=== PATIENT | male | born 1955 | race Caucasian/White ===

== ENCOUNTER 2017-06-29 13:05 | Emergency (ER) | payer OTHER ==
[~2017-06-29] VITALS: Ht 193 cm; Wt 113.4 kg
--- NOTE | ~2017-06-29 | EKG ---
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1955 Requested By: Carroll Salazar Order Number: [id number] MD: Jean Meadows Measurements Intervals [place] Rate: 56 P: 33 GA: 225 QRS: -24 QRSD: 131 T: 70 QT: 440 QTc: 425 Interpretive Statements Sinus rhythm Prolonged GA interval Left bundle branch block Compared to ECG 08/28/2015 08:02:34 Ventricular premature complex(es) no longer present Electronically Signed On 06-29-2017 17:35:06 CDT by Jean Meadows [email or web address] <ELECTRONICALLY SIGNED> By: Jean Meadows MD, [facility] 06/29/17 1735 1433 1433 Jean Meadows MD, FACC /EPI
[~2017-06-29 13:05] MED LIST: ASPIRIN325; ATORVASTATIN CA40 MG PO; BYSTOLIC 5 MG5 M1 PO; CELEXA20 MG PO; DIOVAN HCT 3201 EAC1; FISH OIL 1,4001 EACH; GLUCOPHAGE500 MG PO; IBUPROFEN 200200 M1 PO; LIVALO4 MG; MELATONIN3 MG; NABUMETONE 750750 M1 PO; NORCO 5-325 TA1 EACH PO; NORVASC10 MG PO; TEKTURNA300 MG
[2017-06-29 14:29] LABS: ABSOLUTE NEUTROPHILS 6.6 thou/uL (1.4-8.2); EOSINOPHILS 0.6 % (0.0-3.0); HEMOGLOBIN 13.6 gm/dL (14.0-18.0); LYMPHOCYTES 26.2 % (24.0-44.0); MCH 29.4 pg (26.0-34.0); MCHC 33.9 g/dL (28.0-37.0); MCV 86.6 fL (80.0-100.0); MONOCYTES 6.8 % (1.0-8.0); PLATELET COUNT 230 thou/uL (150-400); POLYS 65.4 % (36.0-66.0); RBC 4.63 mil/uL (4.50-6.00); RDW 13.8 % (10.5-14.5); WBC 10.1 thou/uL (4.0-11.0)
[2017-06-29 14:37] LABS: ANION GAP 8 mmol/L (7-16); BUN 25 mg/dL (7-18); CALCIUM 9.5 mg/dL (8.5-10.1); CHLORIDE 100 mmol/L (98-107); CO2 29 mmol/L (21-32); CREATININE 1.1 mg/dL (0.7-1.3); GLUCOSE 103 mg/dL (74-106); POTASSIUM 3.8 mmol/L (3.5-5.1); SODIUM 137 mmol/L (136-145)
[2017-06-29 14:45] LABS: ALBUMIN 4.1 g/dL (3.4-5.0); SGOT 27 U/L (15-37); SGPT 58 U/L (30-65); TOTAL BILIRUBIN 0.4 mg/dL (<0.1-1.0); TROPONIN-I < 0.04 ng/mL (<0.06)
[2017-06-29] MEDS ORDERED: FLEXERIL PO (15:30)
== END 2017-06-29 16:21 | disposition home or self-care (01) ==
LOC: ER 13:05
PROVIDERS: Emergency Medicine
DX: R00.1 Bradycardia, unspecified (principal); I10 Essential (primary) hypertension; E11.9 Type 2 diabetes mellitus without complications; G47.30 Sleep apnea, unspecified; E78.00 Pure hypercholesterolemia, unspecified; I25.10 Atherosclerotic heart disease of native coronary artery without angina pectoris; F10.99 Alcohol use, unspecified with unspecified alcohol-induced disorder; Z79.82 Long term (current) use of aspirin; Z88.1 Allergy status to other antibiotic agents

== ENCOUNTER → 2017-07-31 | Outpatient (CLI) | payer OTHER ==
[~2017-07-31] VITALS: Ht 193 cm; Wt 167.8 kg
[~2017-07-31] MED LIST changes: +ASPIR 8181 MG PO; -ASPIRIN325; +ASPIRIN325 PO; +BENICAR40 MG PO; +BRILINTA90 MG PO; +BUTALB-APAP-CA1 EACH PO; +CO Q-10100 MG PO; +FLEXERIL PO; +HYDROCHLOROTHIA25 M2 PO; +MELATONIN5 M1 PO; +ZETIA10 MG PO
--- NOTE | ~2017-07-31 | CATHLAB ---
[facility] [employer] [place] [address] INVASIVE PROCEDURE REPORT Name: REESE BELL Room #: REG Sonam#: [id number] Admission: 07/31/17 Attend Phys: Aleks Pederson, Discharge: Date of : 55 Date of Service: 08/08/17 1622 Report #: [id number] THIS REPORT FOR: //name// APPROVED REPORT Study performed: 07/31/2017 07:02:26 Patient Details Patient Status: Out-Patient Room #: The patient is a 61 year-old male Event Personnel Aleks Pederson Lining Stitcher, Wendy Flor RN RN, Herb Billingsley Monitor, Ilana David RTR, RADIOACTIVITY TECHNICIAN Scrub Procedures Performed Art Access - R femoral artery* Left Heart Cath w/or w/o Coronaries 4282517 [facility] [address] Initial Mod Sed Same Phys/QHP Gr5y 850931 Renal Bilateral Peripheral Angiography 0197160 CVRENALBIL , Bilateral Extremity Angio 4633613 CARLA 37347 Mod Sed Same Phys/QHP Ea 324075 Hemostasis w/ Mynx Indication Chest pain Procedure Narrative The Right Groin^ was infiltrated with 1% Lidocaine subcutaneous anesthesia. A PINNACLE 6FR Sheath #[id number] sheath was inserted into the RFA^. Coronary angiography was performed using coronary diagnostic catheters. The right coronary system was accessed and visualized with a 6FR 3DRC #[id number] catheter. The left coronary system was accessed and visualized with a 6FR JL5 #[id number] catheter. The left ventricle was accessed and visualized with a Pigtail catheter. Left ventriculogram was performed in 30 degree projection. An aortogram of the abdominal aorta was performed. Closure device was deployed with a 6 Fr MYNXGRIP 6/7F #[id number]. The patient tolerated the procedure well and there were no complications associated with the procedure. There was no hematoma. Intraoperative Conscious Sedation Sedation start time: 08:30 Case end Time: 09:08 Fentanyl 100 mcg Versed 2 mg Fluoro Time: 5.02 minutes [facility] [address] [place] [address] INVASIVE PROCEDURE REPORT Name: REESE BELL MURIEL Room #: VICKI Masters#: [id number] Admission: 07/31/17 Attend Phys: Aleks Pederson, Discharge: Date of : 55 Date of Service: 08/08/17 1622 Report #: [id number] Dose: DAP 25881 cGycm2 2285 mGy Contrast Type and Amount: Omnipaque 255 ml Hemodynamics The aortic pressure is 152/70 mmHg with a mean of 92 mmHg. The left ventricular pressure is 164/13 mmHg with a mean of mmHg. The left ventricular end diastolic pressure is 32 mmHg. Conclusion #1 normal left ventricular size and systolic function EF 60% #2 abdominal aorta is intact with mild aortic ectasia no aneurysm renal arteries appear to be patent #3 left main large mild disease giving rise to LAD and circumflex #4 LAD has an very proximal lesion just off the left main of 70% with moderate calcification and then a mid vessel lesion in the 60% range. #5 ramus branch with mild disease ostium of 4050% #6 codominant circumflex 40% proximal than a mid vessel lesion which is 80-90% filling a large OM #7 there is a codominant right which has an ostial lesion of 60% and subtotal long mid vessel lesions 90+ percent giving rise to a small PDA somewhat of a codominant system Recommendations and plan: Continue aggressive risk factor modification. Would want CV surgical consultation regarding revascularization by bypass. Versus potential medical therapy. Consideration of intervention until the ostial and LAD and high-grade circumflex with stenting would be a consideration the right coronary artery is not amenable to percutaneous intervention. Further recommendations to follow <ELECTRONICALLY SIGNED> By: Aleks Pederson MD, [facility] 08/08/171621 21 21 Aleks Pederson MD, FACC /INF
--- NOTE | ~2017-07-31 | EKG ---
[place] [address] [email or web address] [place] [address] ELECTROCARDIOGRAM REPORT Name: RAYREESE MURIEL Room #: REG CLI Chante#: [id number] Admission: 07/31/17 Attend Phys: Aleks Pederson MD, Discharge: Date of : 55 Report #: [id number] THIS REPORT FOR: //name// 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: Elena MENA : 1955 Requested By: Aleks Pederson Order Number: [id number] MD: Jean Meadows Measurements Intervals [place] Rate: 67 P: 36 [place]: 208 QRS: 2 QRSD: 124 T: 61 QT: 417 QTc: 441 Interpretive Statements Sinus rhythm Left bundle branch block Compared to ECG 06/29/2017 14:33:55 First degree AV block no longer present Electronically Signed On 07-31-2017 8:42:42 CDT by Jean Meadows [email or web address] <ELECTRONICALLY SIGNED> By: Jean Meadows MD, [facility] 07/31/17 0842 6 6 Jean Meadows MD, [facility] /EPI
[2017-07-31 07:11] LABS: HEMATOCRIT 38.2 % (42.0-52.0); HEMOGLOBIN 12.9 gm/dL (14.0-18.0); MCH 29.3 pg (26.0-34.0); MCHC 33.8 g/dL (28.0-37.0); MCV 86.8 fL (80.0-100.0); RBC 4.4 mil/uL (4.50-6.00); RDW 13.8 % (10.5-14.5); WBC 7.4 thou/uL (4.0-11.0)
[2017-07-31 07:20] LABS: CALCIUM 8.9 mg/dL (8.5-10.1); CREATININE 0.9 mg/dL (0.7-1.3); POTASSIUM 4.4 mmol/L (3.5-5.1)
[2017-07-31 07:52] VITALS: BP 152/79
== END | disposition home or self-care (01) ==
LOC: CATH 06:47
PROVIDERS: Internal Medicine Cardiovascular Disease
DX: I25.10 Atherosclerotic heart disease of native coronary artery without angina pectoris (principal); I77.811 Abdominal aortic ectasia; Z98.890 Other specified postprocedural states; I10 Essential (primary) hypertension; I73.9 Peripheral vascular disease, unspecified; G47.30 Sleep apnea, unspecified; E11.9 Type 2 diabetes mellitus without complications; E78.00 Pure hypercholesterolemia, unspecified; E66.01 Morbid (severe) obesity due to excess calories; Z82.49 Family history of ischemic heart disease and other diseases of the circulatory system; Z87.891 Personal history of nicotine dependence

== ENCOUNTER 2017-08-09 15:14 | Emergency (ER) | payer OTHER ==
[~2017-08-09] VITALS: Ht 193 cm; Wt 166.9 kg
--- NOTE | ~2017-08-09 | EKG ---
[place] [address] [employer] [facility] [facility] [employer] [place] [address] ELECTROCARDIOGRAM REPORT Name: RAYREESE MURIEL [facility] [id number] Admission: 08/09/17 Attend Phys: Discharge: 08/09/17 Date of : 55 Report #: [id number] THIS REPORT FOR: //name// [facility] ED Test Date: 2017-08-09 Test Time: 15:45:06 Pat Name: REESE BELL Department: Room: Gender: M Conche Operator: LORI : 1955 Requested By: Mercy Bonds Order Number: [id number] MD: Jean Meadows Measurements Intervals [place] Rate: 67 P: AR: QRS: -25 QRSD: 131 T: 59 QT: 409 QTc: 432 Interpretive Statements Atrial fibrillation Left bundle branch block Compared to ECG 07/31/2017 07:07:47 Sinus rhythm no longer present Electronically Signed On 08-10-2017 8:21:03 CDT by Jean Meadows [email or web address] <ELECTRONICALLY SIGNED> By: Jean Meadows MD, [facility] 08/10/17 0821 1545 1545 Jean Meadows MD, FACC /EPI
[~2017-08-09 15:14] MED LIST changes: -ASPIR 8181 MG PO; -BRILINTA90 MG PO; -BUTALB-APAP-CA1 EACH PO
[2017-08-09 16:21] LABS: HEMATOCRIT 39.3 % (42.0-52.0); HEMOGLOBIN 13.2 gm/dL (14.0-18.0); MCH 28.9 pg (26.0-34.0); MCHC 33.6 g/dL (28.0-37.0); MCV 86.1 fL (80.0-100.0); RBC 4.57 mil/uL (4.50-6.00); RDW 13.9 % (10.5-14.5); WBC 9.1 thou/uL (4.0-11.0)
[2017-08-09 16:33] LABS: ANION GAP 6 mmol/L (7-16); BUN 21 mg/dL (7-18); CALCIUM 9.7 mg/dL (8.5-10.1); CHLORIDE 100 mmol/L (98-107); CO2 31 mmol/L (21-32); CREATININE 0.9 mg/dL (0.7-1.3); GLUCOSE 137 mg/dL (74-106); SODIUM 137 mmol/L (136-145)
[2017-08-09 16:41] LABS: TROPONIN-I < 0.04 ng/mL (<0.06)
[2017-08-09] MEDS ORDERED: BUTALB-APAP-CA1 EACH PO (17:17)
== END 2017-08-09 17:25 | disposition home or self-care (01) ==
LOC: ER 15:14
PROVIDERS: Physician Assistant
DX: G44.209 Tension-type headache, unspecified, not intractable (principal); I10 Essential (primary) hypertension; R42 Dizziness and giddiness; G47.30 Sleep apnea, unspecified; E11.9 Type 2 diabetes mellitus without complications; E78.00 Pure hypercholesterolemia, unspecified; I25.10 Atherosclerotic heart disease of native coronary artery without angina pectoris; E66.01 Morbid (severe) obesity due to excess calories; Z96.653 Presence of artificial knee joint, bilateral; Z90.49 Acquired absence of other specified parts of digestive tract; Z68.41 Body mass index [BMI] 40.0-44.9, adult; Z88.1 Allergy status to other antibiotic agents; Z87.891 Personal history of nicotine dependence

== ENCOUNTER 2017-08-21 06:56 | Observation (INO) | payer OTHER ==
[~2017-08-21] VITALS: Ht 193 cm; Wt 175.4 kg
[2017-08-21] VITALS (11 sets, daily range): BP systolic 123–189; BP diastolic 59–86
--- NOTE | ~2017-08-21 | EKG ---
[address] [address] ELECTROCARDIOGRAM REPORT Name: REESE BELLN Room #: 210-P 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: nara : 1955 Requested By: Lilly Pruitt Order Number: [id number] MD: Jean Meadows Measurements Intervals [place] Rate: 57 P: 40 [place]: 210 QRS: -17 QRSD: 125 T: 27 QT: 447 QTc: 436 Interpretive Statements Sinus bradycardia Nonspecific intraventricular conduction delay Compared to ECG 08/09/2017 15:45:06 No significant change was found Electronically Signed On 08-22-2017 7:49:01 CDT by Jean Meadows [email or web address] <ELECTRONICALLY SIGNED> By: Jean Meadows MD, [facility] 08/22/17 0749 0654 Jean Meadows MD, [facility] /EPI
--- NOTE | ~2017-08-21 | EKG ---
[address] [address] ELECTROCARDIOGRAM REPORT Name: REESE BELLN Room #: 210-P [facility] M.R.#: [id number] Admission: 08/21/17 Attend Phys: Aleks Pederson MD, Discharge: Date of : 55 Report #: [id number] THIS REPORT FOR: //name// [facility] Test Date: 2017-08-21 Test Time: 21:50:45 Pat Name: REESE BELL Department: Room: 210 P Gender: M Telesales Supervisor: helena : 1955 Requested By: Aleks Pederson Order Number: [id number] MD: Jean Meadows Measurements Intervals [place] Rate: 68 P: 22 AL: 215 QRS: -24 QRSD: 123 T: 43 QT: 392 QTc: 417 Interpretive Statements Sinus rhythm Borderline prolonged AL interval Nonspecific intraventricular conduction delay Baseline wander in lead(s) V2 Compared to ECG 08/09/2017 15:45:06 No significant change was found Electronically Signed On 08-22-2017 7:43:13 CDT by Jean Medaows [email or web address] <ELECTRONICALLY SIGNED> By: Jean Meadows MD, [facility] 08/22/17 0743 49 49 Jean Meadows MD, [facility] /EPI
--- NOTE | ~2017-08-21 | CATHLAB ---
[facility] [address] [place] [address] INVASIVE PROCEDURE REPORT Name: REESE BELLN Room #: 210-P [facility] [place] .R.#: [id number] Admission: 08/21/17 Attend Phys: Aleks Pederson, Discharge: Date of : 55 Date of Service: 08/21/17 1738 Report #: [id number] THIS REPORT FOR: //name// ADDENDUM APPROVED REPORT Study performed: 08/21/2017 07:26:59 Patient Details Patient Status: Out-Patient Room #: The patient is a 61 year-old male Event Personnel Aleks Pederson Jar Filler, Humberto Drummond RN, Herb Billingsley Monitor, Ilana David RTR, BOAT MASTER Scrub Procedures Performed MIRELLA Place w/wo Plasty Single CIRC 422328 Indication Abnormal ECG Procedure Narrative The Right Groin^ was infiltrated with 1% Lidocaine subcutaneous anesthesia. A PINNACLE 6FR TIF Sheath #[id number] sheath was inserted into the RFA^. Coronary angiography was performed using coronary diagnostic catheters. Closure device was deployed with a 6 Fr MYNXGRIP 6/7F #503700. The patient tolerated the procedure well and there were no complications associated with the procedure. Intraoperative Conscious Sedation Sedation start time: 8.32 Case end Time: 9.01 Fentanyl 200 mcg Versed 4 mg Fluoro Time: 4.10 minutes Dose: DAP 9309 cGycm2 1373 mGy Contrast Type and Amount: Omnipaque 95 ml IVUS A Guide Catheter was used to engage the LAUNCHER 6FR EBU 4 #361263 ostium. A LCA Interventional Guidewire was used. A Aeris Pressure Wire 175 cm [id number] was used. Hemodynamics The aortic pressure is 134/71 mmHg with a mean of 96 mmHg. [facility] [place] [address] INVASIVE PROCEDURE REPORT Name: RAYREESE [facility] Room #: 210-P [facility] [place] ..#: [id number] Admission: 08/21/17 Attend Phys: Aleks Pederson, Discharge: Date of : 55 Date of Service: 08/21/17 1738 Report #: [id number] PCI Technique Lesion Percutaneous coronary intervention was performed on the mid circumflex artery segment. A LAUNCHER 6FR EBU 4 #247338 Guide Catheter was used to engage the LCA ostium. A Luge Wire .014 x 182CM #483660 Interventional Guidewire was used to cross the lesion. BALLOON DILATION A Balloon catheter Sprinter OTW 2.5 x 12 #030275 was inserted and inflated up to 10.00atm for 21seconds. Additional Inflation: 0atm for seconds. STENT DEPLOYMENT A drug-eluting stent RESOLUTE OTW 3.0 X 12 #[id number] was inserted and inflated up to 16.00atm for 29seconds. PCI Technique Lesion A LAUNCHER 6FR EBU 4 #225743 Guide Catheter was used to engage the LCA ostium. A Aeris Pressure Wire 175 cm 150005 Interventional Guidewire was used to cross the lesion. Conclusion #1 successful PTCA and stent of a mid circumflex ostial OM sequential stents placed with a 30 by 12 resolute postdilated 3.25 mm in size SPIKE-3 grade 3 flow #2 successful pressure FFR wire of a proximal LAD lesion without adenosine 0.95 suggesting not physiologic significance. 60-70% proximal LAD 50% mid LAD will follow #3 left main large free of disease giving rise to these 2 vessels Recommendations plan: Continue aggressive risk factor modification dual antiplatelet therapy at least one year. No lifting for 48 hours to line tub Integrity Tracking for a week. Patient transfer to CCU follow post stent protocol stable condition The original dictation stated there was a 3.5 stent placed there was not there was a 30 by 12 resolute stent placed in the mid circumflex ostial OM lesion. This has been corrected above <ELECTRONICALLY SIGNED> By: Aleks Pederson MD, FACC 08/21/17 1738 173 37 Aleks Pederson MD, FACC /INF
[~2017-08-21 06:56] MED LIST changes: +BUTALB-APAP-CA1 EACH PO
[2017-08-21] MEDS ORDERED: HYDROCHLOROTHIA25 M2 PO (07:31)
[2017-08-22 00:08] VITALS: BP 144/75
[2017-08-22 04:09] VITALS: BP 151/75
[2017-08-22 04:19] LABS: ALBUMIN 3.5 g/dL (3.4-5.0); CALCIUM 8.6 mg/dL (8.5-10.1); CREATININE 0.9 mg/dL (0.7-1.3); POTASSIUM 4.6 mmol/L (3.5-5.1); TOTAL BILIRUBIN 0.4 mg/dL (<0.1-1.0); TOTAL PROTEIN 6.9 g/dL (6.4-8.2)
[2017-08-22 04:38] LABS: HEMATOCRIT 37.5 % (42.0-52.0); HEMOGLOBIN 12.5 gm/dL (14.0-18.0); MCH 29.3 pg (26.0-34.0); MCHC 33.3 g/dL (28.0-37.0); MCV 87.8 fL (80.0-100.0); RBC 4.27 mil/uL (4.50-6.00); RDW 14.1 % (10.5-14.5); WBC 9.6 thou/uL (4.0-11.0)
[2017-08-22 07:23] VITALS: BP 155/82
[2017-08-22] MEDS ORDERED: BYSTOLIC 5 MG5 M1 PO (07:38)
[2017-08-22] MEDS ORDERED: BRILINTA90 MG PO (07:38)
[2017-08-22] MEDS ORDERED: ASPIR 8181 MG PO (07:38)
[2017-08-22] MEDS ORDERED: GLUCOPHAGE500 MG PO (07:38)
[2017-08-22 09:17] VITALS: BP 155/82
[2017-08-22 09:18] VITALS: BP 155/82
== END 2017-08-22 11:22 | disposition home or self-care (01) ==
LOC: CATH 06:56 → 2N 10:38 → CATH 14:12 → ENTRNSPT 08-22 10:06 → EDTRNSPTSTS 08-22 10:10 → 2N 08-22 11:22
PROVIDERS: Internal Medicine Cardiovascular Disease
DX: I25.10 Atherosclerotic heart disease of native coronary artery without angina pectoris (principal); I10 Essential (primary) hypertension; E78.00 Pure hypercholesterolemia, unspecified; E11.9 Type 2 diabetes mellitus without complications; G47.33 Obstructive sleep apnea (adult) (pediatric); I65.23 Occlusion and stenosis of bilateral carotid arteries; M19.90 Unspecified osteoarthritis, unspecified site; F32.9 Major depressive disorder, single episode, unspecified; E66.3 Overweight; Z90.89 Acquired absence of other organs; Z98.890 Other specified postprocedural states; Z87.891 Personal history of nicotine dependence; Z95.5 Presence of coronary angioplasty implant and graft

== ENCOUNTER 2017-12-27 14:06 | Emergency (ER) | payer OTHER ==
[~2017-12-27] VITALS: Ht 193 cm; Wt 167.4 kg
[~2017-12-27 14:06] MED LIST changes: +ASPIR 8181 MG PO; +BRILINTA90 MG PO
[2017-12-27] MEDS ORDERED: OLMESARTAN-HCT1 EAC2 PO (14:29)
[2017-12-27] MEDS ORDERED: CLEOCIN HCL150 MG PO (14:31)
[2018-01-01] MEDS ORDERED: METFORMIN HCL500 MG PO (13:28)
[2018-01-01] MEDS ORDERED: BRILINTA90 MG PO (13:29)
[2018-01-01] MEDS ORDERED: CHILDREN'S ASPI81 M1 PO (13:30)
[2018-01-01] MEDS ORDERED: LIPITOR 20 MG T20 M1 PO (13:32)
[2018-01-01] MEDS ORDERED: METOPROLOL TART25 MG PO (13:33)
== END 2017-12-27 16:55 | disposition home or self-care (01) ==
LOC: ER 14:06
DX: D17.23 Benign lipomatous neoplasm of skin and subcutaneous tissue of right leg (principal); R20.2 Paresthesia of skin; Z87.891 Personal history of nicotine dependence; Z88.1 Allergy status to other antibiotic agents; Z96.653 Presence of artificial knee joint, bilateral; Z90.49 Acquired absence of other specified parts of digestive tract; I10 Essential (primary) hypertension; I73.9 Peripheral vascular disease, unspecified; G47.30 Sleep apnea, unspecified; E11.9 Type 2 diabetes mellitus without complications; E78.00 Pure hypercholesterolemia, unspecified; I25.10 Atherosclerotic heart disease of native coronary artery without angina pectoris; M19.90 Unspecified osteoarthritis, unspecified site; F32.9 Major depressive disorder, single episode, unspecified; Z90.89 Acquired absence of other organs; E66.01 Morbid (severe) obesity due to excess calories; Z68.41 Body mass index [BMI] 40.0-44.9, adult; Z95.5 Presence of coronary angioplasty implant and graft

== ENCOUNTER 2018-01-02 05:29 | Day surgery (SDC) | payer OTHER ==
[~2018-01-02] VITALS: Ht 193 cm; Wt 167.9 kg
--- NOTE | ~2018-01-02 | PATH ---
[facility] [address] [place] [address] PATHOLOGY RPT PROCEDURE Name: REESE GODOY MURIEL Room #: DEP [facility] M.R.#: [id number] Admission: 01/02/18 Date of : 55 Discharge: 01/02/18 Report #: [id number] Path Case #: [id number] LCA Accession Number: [id number] . 01 Material submitted: . PAINFUL MASS RIGHT CALF . 01 Clinical history: . Thrombosis calf right . 02 Diagnosis: Fibroadipose muscular tissue, "painful mass, right calf": - Fibromuscular adipose tissue revealing focal recent hemorrhage with fat necrosis and with chronic inflammation. - See comment. . (TESS:tip;01/04/2018) AGA/01/04/2018 . 02 Comment: These findings could be secondary to trauma; however, suggest clinical correlation. . (TESS:vorly;01/04/2018) . 02 Electronically signed: . Henry Castañeda MD, Pathologist NPI- [id number] . 01 Gross description: . Received in formalin labeled "Reese Godoy, painful mass right calf," is a 6.2 x 3.2 x 1.4 cm aggregate of pale yellow, lobulated adipose tissue admixed with zapata-brown fibromembranous tissue. Serial sectioning reveals yellow-zapata cut surfaces. No lesions or nodules are noted grossly. Chief Nuclear Medicine Technologist tissue is submitted in cassettes A1 and A2. ([facility]; 01/03/2018) XDC/XDC . 02 Pathologist provided ICD-10: I74.3 . 02 CPT . 631832 Specimen Comment: A courtesy copy of this report has been sent to Specimen Comment: [phone]. Specimen Comment: Report sent to Performed at: [address] [address] PATHOLOGY RPT PROCEDURE Name: REESE GODOY MURIEL Room #: DEP [facility] Sonam#: [id number] Admission: 01/02/18 Date of : 55 Discharge: 01/02/18 Report #: [id number] Path Case #: [id number] [address] [id number] MD Tushar Chavarria MD Phone: [phone] Performed at: [address] [id number] MD Ana Crowley MD Phone: [phone]
--- NOTE | ~2018-01-02 | H ---
[facility] [place] [address] HISTORY AND PHYSICAL Name: REESE BELL MURIEL Room #: 150-8 [facility] M.R.#: [id number] Admission: 01/02/18 Attend Phys: Vikas Smith MD Discharge: Date of : 55 Report #: [id number] THIS REPORT FOR: //name// CC: Vikas Fernandez PREOPERATIVE DIAGNOSIS: Right calf mass, consistent with a subfascial thrombophlebitis. HISTORY OF PRESENT ILLNESS: The patient is a 62-year-old who noticed severe pain in his right calf last week. The patient woke up in the middle of the night with bad pain. The patient went to the Emergency Room. The patient had an ultrasound, which did not show any DVT and the patient had a mass that was felt to be consistent with a hematoma. The patient saw the cleaning machine operator's office and also his primary care doctor, Dr. Fernandez and Dr. Clayton. The patient was told to come and see me last week, last Monday, for evaluation. The patient denied any injury to this area. The patient is actually even on Brilinta, having a stent placed in August. The patient complains of dark skin since he was about 20 years old. The patient, in the last 10 years, has gained weight, but recently from November, he went on a diet and lost 62 pounds. The patient has had knee surgeries in the past. He thinks there is a bulgy ring over the right mathis. His mother had vein disease and had vein stripping. When he was seen in the office, he was felt to have a thrombophlebitis, but strangely, it was underneath the fascia, so technically as part of the deep vein system, there is a vascular neurologist go into this. He was found to have greater saphenous vein reflux. I suspect the superficial venous insufficiency has caused the perforated to dilate and causing the deep vein also to dilate in this area and certainly, the patient developed a clot in this area. The patient was put on pain medication, elevation, compression stocking and heat. Over the weekend, Monday, he did feel better. He tried to go to work yesterday, but was having severe pains and having difficulty with numbness around the area and down to the foot, also having trouble dorsiflexion of his foot. He was afraid that he was going to have trouble driving, so he went home. His brought him to the office. The clot does look bigger on a followup ultrasound. The patient is recommended at this point to undergo excision of the thrombophlebitis. I think it will take quite a long time for this to resolve. Since he failed conservative management, surgical treatment is recommended. PAST MEDICAL HISTORY: He has type 2 diabetes, high blood pressure, coronary artery disease and elevated cholesterol. He has a history of sleep apnea, thyroid lesion and stent in the carotid. MEDICATIONS: Metformin 500 mg 2 twice a day, ezetimibe 10 mg once a day, Brilinta 90 mg twice a day, Norvasc 10 mg once a day, olmesartan and hydrochlorothiazide 40/25 once a day and atorvastatin 20 mg once a day. FAMILY HISTORY: Diabetes, high blood pressure. [address] [address] HISTORY AND PHYSICAL Name: REESE BELL Room #: 150-8 [facility] M.R.#: [id number] Admission: 01/02/18 Attend Phys: Vikas Smith MD Discharge: Date of : 55 Report #: [id number] PAST SURGICAL HISTORY: Two total knee replacement over 10 years ago, appendectomy over 40 years ago and umbilical hernia done by me 3 years ago. 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 He does not smoke. He drinks about one six-pack a month. REVIEW OF SYSTEMS: No fevers or chills. PHYSICAL EXAMINATION: GENERAL: On exam, the patient is alert and oriented. He is a large-sized man. He is obese. HEENT: Pupils react to light. Extraocular muscles are intact. NECK: Soft and supple. No masses. LUNGS: Clear to auscultation. HEART: Regular rate and rhythm. No murmur or gallop. ABDOMEN: Soft, nondistended and nontender. No mass. EXTREMITIES: The patient does have swelling in the lower extremity bilaterally, worse on the right side. This starts in the lower calf and down. The patient has a 3 cm tender mass in the right lateral calf, in the lower part of the calf. The patient does have dark pigmentation in both legs; the right is greater. There is a soft nodular area over the mathis. Ultrasound shows that this is not at varicose vein, but probably a lipoma. The patient is able to flex his ankle, but it causes pain when he does that. IMPRESSION AND PLAN: The patient with thrombophlebitis just below the fascia. There is a large-sized mass here. This is about 3 cm diameter and about 6 cm in length. There is a vascular neurologist joining this, which is visible on ultrasound. The patient is recommended to undergo an excision of the thrombosed vein. This patient failed conservative management. The patient wishes to proceed with surgery. By: 1120 1247 Vikas Smith MD /suman
--- NOTE | ~2018-01-02 | O ---
[facility] [place] [address] [place] [address] OPERATIVE REPORT Name: CHOCOPARVEZREESE MURIEL Room #: DEP [facility].#: [id number] Admission: 01/02/18 Attend Phys: Vikas Smith MD Discharge: 01/02/18 Date of : 55 Report #: [id number] THIS REPORT FOR: //name// CC: Vikas Fernandez MD DATE OF SERVICE: 01/02/2018 PREOPERATIVE DIAGNOSIS: Tender right calf mass, possible subfascial thrombophlebitis. POSTOPERATIVE DIAGNOSIS: Right calf mass consisting of mucus material, etiology to be determined. PROCEDURE PERFORMED: Drainage of right calf mass and biopsy. ANESTHESIA: IV sedation, local mixture of 1% lidocaine and 0.25% Marcaine. COMPLICATIONS: None. ESTIMATED BLOOD LOSS: 15 mL. DESCRIPTION OF PROCEDURE: With the patient on IV sedation, IV antibiotic was administered. The right calf area was prepped and draped in sterile fashion. Timeout was performed. Local anesthetic was injected into the skin and subcutaneous tissue. The lesion is identified with ultrasound, hypoechoic lesion with internal echoes. This was felt to be a clotted subfascial vein. There was a connection through the fascia, which looked like a still operator. I could not get any blood flow through this thinking that this was a clot. Today, this actually feels softer. After incising through the skin and subcutaneous tissue, there is a bump that is anterior to the fascia where I thought that this was a perforated, but turned out to be part of a cystic or fluid containing lesion. The fascia was opened longitudinally freeing this. When I got down to the deeper tissue, there was not a distinct mass or a clot. There was seepage of a fairly large amount of a mucoid material, somewhat mucoid gelatinous material. I am not quite sure, I did not see any mass. The tissue did not have any wall that I could detect. The tissue that was around this gelatinous material was biopsied, but the biopsy was somewhat difficult to perform because there was not a true lesion that I could detect. The muscles all looked unremarkable. I did not see any gross evidence of tumors. The wall area was sent for pathology. The end distally was clamped and ligated with 3-0 Vicryl tie. Irrigation was performed. There was no remarkable oozing identified. The patient had about a 15 mL blood loss. The fascia was not closed fearing of too much tension in this area. The subQ was able to be brought together with 3-0 PDS. Skin was closed with 4-0 nylon. Even afterwards and irrigating everything [facility] [address] [place] [address] OPERATIVE REPORT Name: REESE BELL MURIEL Room #: DEP [facility] M.R.#: [id number] Admission: 01/02/18 Attend Phys: Vikas Smith MD Discharge: 01/02/18 Date of : 55 Report #: [id number], there was still some gelatinous material that came out with squeezing. I am not really sure where it is coming from. The patient does have a cystic lesion of higher possible Liz cyst, I do not know if this is connected to that. The patient's surgery was completed and the patient was taken to recovery room in good condition. By: 16 35 Vikas Smith MD /nt
[~2018-01-02 05:29] MED LIST changes: +CHILDREN'S ASPI81 M1 PO; +CLEOCIN HCL150 MG PO; +LIPITOR 20 MG T20 M1 PO; +METFORMIN HCL500 MG PO; +METOPROLOL TART25 MG PO; +OLMESARTAN-HCT1 EAC2 PO
[2018-01-02 13:15] LABS: CALCIUM 9.6 mg/dL (8.5-10.1); CREATININE 1.1 mg/dL (0.7-1.3); POTASSIUM 4.8 mmol/L (3.5-5.1)
== END 2018-01-02 18:00 | disposition home or self-care (01) ==
LOC: OR 05:29 → TBA 05:29 → OR 12:14
PROVIDERS: Surgery
DX: I80.9 Phlebitis and thrombophlebitis of unspecified site (principal); M60.861 Other myositis, right lower leg; M79.89 Other specified soft tissue disorders; I10 Essential (primary) hypertension; E11.9 Type 2 diabetes mellitus without complications; I25.10 Atherosclerotic heart disease of native coronary artery without angina pectoris; G47.30 Sleep apnea, unspecified; E78.00 Pure hypercholesterolemia, unspecified; Z88.1 Allergy status to other antibiotic agents; Z79.82 Long term (current) use of aspirin; Z79.899 Other long term (current) drug therapy; Z79.84 Long term (current) use of oral hypoglycemic drugs; Z87.891 Personal history of nicotine dependence; Z95.5 Presence of coronary angioplasty implant and graft; Z98.890 Other specified postprocedural states; Z96.653 Presence of artificial knee joint, bilateral; Z90.89 Acquired absence of other organs
CPT/HCPCS: 50010; 50101; 50386; 56526; 56527; 57091; 62110; 62850; 70005

== ENCOUNTER → 2018-01-12 | Outpatient (CLI) | payer OTHER | LOC: MRI 09:21 | DX: M25.461 Effusion, right knee (principal); M67.261 Synovial hypertrophy, not elsewhere classified, right lower leg ==

== ENCOUNTER → 2019-08-13 | Outpatient (CLI) | payer OTHER | LOC: SJCVCIMAG 04-22 09:35 | PROVIDERS: ATTEND Internal Medicine Cardiovascular Disease | DX: I44.7 Left bundle-branch block, unspecified (principal) ==

== ENCOUNTER → 2019-10-11 | Outpatient (CLI) | payer OTHER ==
[~2019-10-11] VITALS: Ht 193 cm; Wt 172.4 kg
[~2019-10-11] MED LIST changes: +ACETAMINOPHEN500 M1 PO; +BACLOFEN5 MG PO; +BYSTOLIC10 MG PO; +CEFADROXIL 500500 M1 PO; +EDARBYCLOR 40-1 EAC1 PO; +FUROSEMIDE 20 M20 MG PO; +IBU800 MG PO; +ROSUVASTATIN CA20 MG PO
[2019-10-11 09:34] VITALS: BP 193/78
--- NOTE | 2019-10-11 09:36 | NUR ---
Pain Clinic Assessment: 1. History of Osteoarthritis: KNEES BACK History of Rheumatoid Arthritis: NO 2. Height: 6 ft. 4 in. 193.0 cm. Weight: 380.0 lb. oz. 172.368 kg. Patient's BMI: 46.3 3. Vital Signs: BP: 193/78 Pulse: 85 Resp: 20 Temp: 02 Sat: 98 ECG Mon: 4. Pain Intensity: 2 5. Fall Risk: Dizziness: N Needs help standing or walking: N Fallen in the last 3 months: N Fall risk comments: 6. Patient on Blood Thinner: None 7. History of Hypertension: Y 8. Opioid Therapy greater than 6 weeks: N Opiate Contract Signed: 9. Risk Assessment Tool Provided: 0-LOW RISK 10. Functional Assessment Tool: 11. Recreational Drug Use: Never Drug Type: Tobacco Use: Never Smoker Tobacco Type: Amount or Packs/day: How Many Years: Alcohol Use: Yes Frequency: Weekly Quant: 3 BEERS/WEEK
--- NOTE | 2019-10-25 08:23 | HPC ---
[facility] [place] [address] PAIN MANAGEMENT CONSULTATION Name: REESE BELLN Room #: REG DEONNA Mercedes.#: [id number] Admission: 10/11/19 Attend Phys: Yonathan Huff MD Discharge: Date of : 55 Report #: [id number] THIS REPORT FOR: cc: Arslan Fernandez,Yonathan Arellano MD ~ CC: Yonathan Fernandez DATE OF SERVICE: 10/11/2019 CHIEF COMPLAINT: Left sciatic nerve pain and back pain. HISTORY: The patient is a 64-year-old gentleman who has been referred to the pain clinic for evaluation of back and leg pain. He has had pain similar to this several years ago. He underwent a piriformis muscle injection that lasted about 6 months. He describes the discomfort as intermittent, burning and stabbing. Pain is exacerbated with walking, standing and improves with stretching and sitting. He notes some numbness and paresthesias in his leg. He has tried nonsteroidal anti-inflammatory medications, has used ice, has performed exercises with no long-term benefit. He has undergone an MRI, which showed stenosis in the low back area. He had been active. He was able to walk up to a mile, but is limited at this point. ALLERGIES: PENICILLIN. CURRENT MEDICATIONS: Ibuprofen 800 mg, Bystolic 10 mg, Extra Strength Tylenol 500 mg, Edarbyclor 40/25 mg, Cefadroxil 500 mg t.i.d., baclofen 5 mg t.i.d., Lasix 20 mg, Rosuvastatin 20 mg, aspirin 81 mg, metformin 500 mg b.i.d., Zetia 10 mg, Norvasc 10 mg. PAST MEDICAL HISTORY: Type 2 diabetes, hypertension, coronary artery disease with elevated cholesterol, history of sleep apnea, thyroid lesion, stent in the carotids, obesity and use of CPAP machine. PAST SURGICAL HISTORY: Two knee replacements over 10 years, appendectomy 40 years ago, umbilical hernia repair. Again, peripheral vascular disease in 2006, left carotid stent. SOCIAL HISTORY: Former smoker, smoked 1 pack of cigarettes per day. REVIEW OF SYSTEMS: As per HPI. LABORATORY DATA: 1. At L2-L3, diffuse annular bulge. This is most pronounced laterally and associated with an annular fissure. Facet arthropathy and thickening of the [facility] [address] [place] [address] PAIN MANAGEMENT CONSULTATION Name: REESE BLEL MURIEL Room #: REG DEONNA Masters#: [id number] Admission: 10/11/19 Attend Phys: Yonathan Huff MD Discharge: Date of : 55 Report #: [id number] ligamentum flavum. Narrowing of the inferior aspects of the neural foramen, left greater than right central canal narrowing also present. Thecal sac 0.7 cm AP. 2. At L3-L4, mild left lateral bulging disk. Mild facet arthropathy and thickening of the ligamentum flavum 1.4 cm AP. 3. L4-L5, mild bulging disk osteophyte complex. Concurrent mild right foraminal disk protrusion extending 0.3 cm posteriorly. Facet arthropathy and mild thickening of the ligamentum flavum. These findings result in moderate right foraminal narrowing with superior displacement of the exiting L4 nerve root and mild left foraminal narrowing. Thecal sac 1.5 cm AP. 4. L5-S1, slight anterolisthesis. Diffuse bulging disk osteophyte complex. The osteophyte component is most pronounced left laterally. Concurrent small right foraminal disk protrusion extending 0.2 cm posteriorly. Moderate facet arthropathy. Findings result in mild right foraminal narrowing and moderate left foraminal narrowing. Thecal sac 1.7 cm AP. PAIN CLINIC ASSESSMENT AND PQRS: 1. History of osteoarthritis involving the knee and back. The patient is not being treated for rheumatoid arthritis. 2. Height 6 feet 4 inches, weight 380 pounds, BMI is 46. 3. Vital Signs: Blood pressure 193/78, pulse 85, respiratory rate 20, room air saturation 98%. 4. Pain intensity 04/22. 5. Fall risk. The patient has not fallen in the last 3 months. 6. Blood thinner. The patient is not on a blood thinning medication. 7. Hypertension. The patient is being treated for hypertension. 8. Opioids 6 weeks. The patient receives medications from his primary. 9. Risk assessment tool, low for opioid use. 10. Functional assessment tool 32/. 11. Recreational drug use. The patient is a former smoker. 12. Alcohol: The patient drinks about 3 beers weekly. PHYSICAL EXAMINATION: GENERAL: The patient is a well-developed, well-nourished white male. Appears his stated age. He is alert and oriented x 3. His affect is appropriate. Speech is fluent. HEENT: Normocephalic, atraumatic. Extraocular eye muscles intact. Sclerae nonicteric. Mucous membranes are moist. NECK: Without adenopathy or JVD. The patient is wearing a mask. HEART: Regular. ABDOMEN: Nontender. LUNGS: Clear. EXTREMITIES: Upper extremity muscle strength judged to be at 5/5 for the major muscle groups. The patient has pain and discomfort in the lower portion of his back in the left sciatic outflow tract. Complains of pain that radiates down his leg in the L5-S1 dermatomal distribution. The patient notes weakness [facility] [address] [place] [address] PAIN MANAGEMENT CONSULTATION Name: REESE BELL MURIEL Room #: REG DEONNA Sonam#: [id number] Admission: 10/11/19 Attend Phys: Yonathan Huff MD Discharge: Date of : 55 Report #: [id number] associated with that as well as some paresthesias. IMPRESSION: Lumbar radiculopathy with L5-S1 dermatomal distribution. RECOMMENDATIONS: We discussed treatment options with the patient. Risks and benefits of an epidural steroid injection were discussed. I think the patient would benefit from an epidural steroid injection. He does have findings, which are consistent with lumbar radiculopathy. He has multi-degenerative processes in this disk in the low back area. He also has mild right foraminal disk protrusions at L4-L5 and L5-S1. Has foraminal stenosis on the right at L4-L5 and stenosis on the left at L5-S1. There is a central narrowing at L2-L3. He will return to the Pain Clinic, at which time after he has been pre-certified by his insurance carrier to undergo an epidural steroid injection. <ELECTRONICALLY SIGNED> By: Yonathan Huff MD 10/25/19 0823 0835 1557 N. Sourav Huff MD /PMT
== END ==
LOC: PAIN 06:53
PROVIDERS: ATTEND Anesthesiology Pain Medicine
DX: M54.16 Radiculopathy, lumbar region (principal); I10 Essential (primary) hypertension; Z88.0 Allergy status to penicillin; Z68.42 Body mass index [BMI] 45.0-49.9, adult; Z79.891 Long term (current) use of opiate analgesic; Z79.899 Other long term (current) drug therapy; Z87.891 Personal history of nicotine dependence

== ENCOUNTER → 2021-02-11 | Outpatient (CLI) | payer OTHER, MEDICARE | LOC: SJCVCIMAG 08:55 | PROVIDERS: ATTEND Internal Medicine Cardiovascular Disease | DX: R94.31 Abnormal electrocardiogram [ECG] [EKG] (principal); I65.23 Occlusion and stenosis of bilateral carotid arteries; I10 Essential (primary) hypertension; E78.00 Pure hypercholesterolemia, unspecified; E11.9 Type 2 diabetes mellitus without complications; I25.10 Atherosclerotic heart disease of native coronary artery without angina pectoris; I44.7 Left bundle-branch block, unspecified; J43.9 Emphysema, unspecified; E06.3 Autoimmune thyroiditis; E66.9 Obesity, unspecified; F32.9 Major depressive disorder, single episode, unspecified; G47.30 Sleep apnea, unspecified; Z87.891 Personal history of nicotine dependence; Z88.1 Allergy status to other antibiotic agents; Z79.82 Long term (current) use of aspirin; Z79.84 Long term (current) use of oral hypoglycemic drugs; Z79.899 Other long term (current) drug therapy ==

== ENCOUNTER → 2021-02-25 | Outpatient (CLI) | payer OTHER, MEDICARE | LOC: SJCVC 09:48 | PROVIDERS: ATTEND Internal Medicine Cardiovascular Disease | DX: I10 Essential (primary) hypertension (principal); E78.00 Pure hypercholesterolemia, unspecified ==

== ENCOUNTER → 2021-04-30 | Day surgery (SDC) | payer OTHER, MEDICARE ==
[~2021-04-30] VITALS: Ht 193 cm; Wt 176.9 kg
[~2021-04-30] MED LIST changes: +JARDIANCE10 MG PO; +MELATONIN10 M3 PO; +PROBIOTIC1 EAC7 PO
--- NOTE | 2021-04-30 07:19 | H ---
[facility] [place] [address] HISTORY AND PHYSICAL Name: REESE BELL MURIEL Room #: REG [facility] M..#: [id number] Admission: 04/30/21 Attend Phys: Isra Mills MD Discharge: Date of : 55 Report #: [id number] THIS REPORT FOR: cc: William Clayton James A. DO Dunfield, Jay A. MD ~ CHIEF COMPLAINT: Raspy voice. HISTORY OF PRESENT ILLNESS: The patient is a 65-year-old gentleman who had noted a several-month history of throat clearing, hoarseness and a rough sensation in his throat, despite using nasal saline sprays, nasal steroid sprays. On examination, of his office visit 04/02/2021, demonstrated a lesion present on the left anterior true vocal cord. This mass is exophytic in nature and it was recommended at that time given the duration of the mass we consider a microdirect laryngoscopy with biopsy and frozen section diagnoses. Risks and benefits of surgery including but not limited to anesthesia, bleeding, infection, hoarse voice, need for further surgical intervention, lack of improvement of voice were discussed and agrees to proceed forward. ALLERGIES: PENICILLIN. MEDICATIONS ON ADMISSION: Amlodipine 10 mg once a day, aspirin 325 mg daily, citalopram 20 mg once a day, Edarbyclor 40/25 mg once a day, Ezetimibe 10 mg once a day, Lasix 40 mg once a day, ____10 mg once a day, metformin 1000 mg daily, rosuvastatin 20 mg a day, sildenafil 20 mg tablets three times a day. PAST MEDICAL AND SURGICAL HISTORY: Notable for previous abdominal surgery, cardiac surgery, knee surgery, history of pulmonary hypertension, history of diabetes, history of sleep apnea. FAMILY HISTORY: Noncontributory aside from heart disease in his mother and his brother. REVIEW OF SYSTEMS: Presently, negative for any GI, , cardiovascular, pulmonary issues aside from noted above. PHYSICAL EXAMINATION: VITAL SIGNS: Height is 6 feet 3 inches, weight of 390 pounds. Blood pressure last recorded 179/92. HEENT: As noted above in the HPI for the laryngeal examination. NECK: Palpates normally. CHEST: With diminished breath sounds but clear. CARDIOVASCULAR: Regular rhythm. IMPRESSION: History of left true vocal cord mass. [facility] [address] [place] [address] HISTORY AND PHYSICAL Name: RAYREESE MURIEL Room #: REG [facility] M.R.#: [id number] Admission: 04/30/21 Attend Phys: Isra Mills MD Discharge: Date of : 55 Report #: [id number] PLAN: Will be for microdirect laryngoscopy, frozen section diagnosed, under anesthesia. <ELECTRONICALLY SIGNED> By: Isra Mills MD 04/30/21 0719 0904 0924 Isra Mills MD /nt
[2021-04-30 08:04] VITALS: BP 137/68
[2021-04-30 08:16] LABS: CREATININE 1.3 mg/dL (0.7-1.3); POTASSIUM 4.6 mmol/L (3.5-5.1)
[2021-04-30 09:28] VITALS: BP 137/68
--- NOTE | 2021-05-05 15:09 | PATH ---
[facility] [place] [address] PATHOLOGY RPT PROCEDURE Name: REESE GODOY MURIEL Room #: REG [facility]..#: [id number] Admission: 04/30/21 Date of : 55 Discharge: Report #: [id number] Path Case #: [id number] [facility] Accession Number: [id number] . 01 Material submitted: . PART A: larynx - LEFT VOCAL CORD MASS- FS. Modifiers: left PART B: larynx - ADDITIONAL LEFT VOCAL CORD MASS. Modifiers: left . 01 Clinical history: . DIRECT LARYNGOSCOPY NEOPLASM OF VOCAL CORD . 02 Frozen section diagnosis: . FROZEN SECTION DIAGNOSIS: FSA1. 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 . The report was given to Dr. Isra Mills at [facility] on 04/30/2021 at 9:07 am and a written report is placed in the patient's chart. (ANK:pit; 04/30/2021) . FROZEN SECTION GROSS DESCRIPTION: The specimen is received fresh from the operating room labeled with the patient's name and "left vocal cord mass" and consists of a fleshy form pink mass which measures 0.6 x 0.5 x 0.4 cm. The specimen is submitted all for frozen section in FSA1 and subsequently in formalin in block A1. (ANK:pit; 04/30/2021) . Frozen section performed at [facility], [address], [place] [address]. GEOVANNA/QTP . 02 Diagnosis: A. 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 - Negative for high grade dysplasia or definite invasion. . B. Additional left vocal cord mass, excision: - Fragments of squamous mucosa with keratosis, mild squamous dysplasia (low grade dysplasia) and inflammation. - Negative for high grade dysplasia or definite malignancy. . (See comment) . (ANK:cyndi; 05/05/2021) [facility] 05/05/2021 [address] [address] PATHOLOGY RPT PROCEDURE Name: REESE GODOY Room #: REG SD M.R.#: [id number] Admission: 04/30/21 Date of : 55 Discharge: Report #: [id number] Path Case #: [id number] . 02 Comment: The vocal cord mass exhibits keratosis with low grade dysplasia and chronic inflammation. Multiple levels and deeper levels were examined to look for more worrisome lesion, i.e., invasion. A definite invasion cannot be rendered on the given specimen. A high grade dysplasia is not identified on a p16 immunohistochemical stain performed on block B1. . This may represent a superficial portion of a larger lesion. Clinical correlation is recommended. . This case has been co-reviewed with Dr. Jeana Guillen and Dr. Jonatan Hess who agrees with my diagnosis on 05/04/2021. . (ANK:mmdarling; 05/05/2021) . 02 Electronically signed: . Dee Salazar MD, Pathologist NPI- [id number] . 01 Gross description: . A. SEE FROZEN SECTION FOR GROSS DESCRIPTION . B. The specimen is received in formalin, labeled "Reese Godoy, additional left vocal cord mass" and consists of multiple pink-zapata soft and rubbery irregular tissues aggregating 1.0 x 0.9 x 0.2 cm which are filtered and submitted in toto in B1. (KAKTOVIK; 04/30/2021) DKA/DKA 05/05/2021 1035 Local . 02 Pathologist provided ICD-10: D14.1, J38.3 . 02 CPT . 678517, 143047, Z20815, 061573 Specimen Comment: A courtesy copy of this report has been sent to [phone], [phone] Specimen Comment: [id number] Specimen Comment: Report sent to / DR MAZARIEGOS Performed at: [address] [facility], [place], [place] [id number] MD Henry Castañeda MD Phone: [phone] Performed at: [address] [facility] [id number] MD Dee Salazar MD Phone: [phone]
== END | disposition home or self-care (01) ==
LOC: OR 06:33
PROVIDERS: ATTEND Otolaryngology
DX: J38.3 Other diseases of vocal cords (principal); D14.1 Benign neoplasm of larynx; I10 Essential (primary) hypertension; E11.9 Type 2 diabetes mellitus without complications; E78.00 Pure hypercholesterolemia, unspecified; Z98.890 Other specified postprocedural states; Z79.899 Other long term (current) drug therapy; Z96.653 Presence of artificial knee joint, bilateral; Z20.822 Contact with and (suspected) exposure to COVID-19; Z90.49 Acquired absence of other specified parts of digestive tract; Z87.891 Personal history of nicotine dependence
CPT/HCPCS: 50010; 50101; 62110; 62900; 70005